=== PATIENT | male | born 1970 | race Two or more races ===

== ENCOUNTER 2023-11-20 04:18 | Day surgery (SDC) | payer OTHER ==
[2023-11-12 19:17] VITALS: BMI 21.7
[2023-11-20] MEDS ORDERED: LIDOCAINE 1%/EPI 1:100000 (20 ML MULTI DOSE VIAL) ONE (07:34)
[2023-11-20] MEDS ORDERED: MIDAZOLAM HCL 2 MG/2 ML SINGLE DOSE VIAL ONE (07:43)
[2023-11-20] MEDS ORDERED: SUCCINYLCHOLINE CHLORIDE 200 MG/10 ML SYRINGE ONE (07:44)
[2023-11-20] MEDS ORDERED: ROCURONIUM BROMIDE 50 MG/5 ML SYRINGE ONE (07:44)
[2023-11-20] MEDS ORDERED: PROPOFOL 20 ML ONE (07:44)
[2023-11-20] MEDS ORDERED: ONDANSETRON 4 MG/2 ML VIAL IVPUSH PRN (08:12)
[2023-11-20] MEDS: ceFAZolin SODIUM 1 GM VIAL IVPB ONE (08:20)
[2023-11-20] MEDS ORDERED: DEXAMETHASONE SOD PHOSPHATE 4 MG/1 ML VIAL ONE (08:34)
[2023-11-20] MEDS ORDERED: ceFAZolin SODIUM 1 GM VIAL ONE (08:34)
[2023-11-20] MEDS: LIDOCAINE 1%/EPI 1:100000 (20 ML MULTI DOSE VIAL) IJ ONE (08:56)
[2023-11-20] MEDS ORDERED: MICROFIBRILLAR COLLAGEN (AVITENE) 1 EACH POWD.PACK TP ONE (11:00)
[2023-11-20] MEDS: LACTATED RINGERS SOLUTION 1,000 ML IV SCH (11:09)
[2023-11-20] MEDS ORDERED: ACETAMINOPHEN INJECTION 100 ML IVPB ONE (11:49)
[2023-11-20] MEDS: ACETAMINOPHEN 1000 MG/100 ML BAG IVPB ONE (11:52)
[2023-11-20] MEDS: oxyCODONE HCL 5 MG TABLET PO PRN (12:12)
[2023-11-20] MEDS ORDERED: oxyCODONE HCL 5 MG TABLET ONE (12:13)
[2023-11-20 12:37] VITALS: RESP 20; TEMP 97.3
[2023-11-20 13:00] VITALS: BP 127/75; PULSE 70
== END 2023-11-20 13:11 | disposition home or self-care (01) ==
LOC: JASU-SURG 04:18
PROVIDERS: ATTEND Surgery
PROC: 0GTH0ZZ Resection of Right Thyroid Gland Lobe, Open Approach (ICD-10-PCS; principal; 2023-11-20 08:00)
DX: E04.1 Nontoxic single thyroid nodule (principal)
CPT/HCPCS: 88307-TC; 94760; J0131